=== PATIENT | male | born 1960 | race Caucasian/White ===

== ENCOUNTER 2022-10-13 07:03 | Day surgery (SDC) | payer BC, SELFPAY ==
[2022-10-13 07:15] VITALS: BP 149/82; PULSE 73; RESP 18; TEMP 37.1; O2SAT 9
[2022-10-13] MEDS: Lactated Ringers 1,000 ML 80 ML IV (07:42)
--- NOTE | 2022-10-13 08:25 | W.ANESPRE ---
General Info Date of Service Date Performed: 10/13/22 Height: 6 ft 2 in Weight: 118.7 kg Body Mass Index (BMI): 33.5 Surgical Procedure: Operation Date: 10/13/22 08:35 Proposed Procedure Side Surgeon p Colonoscopy Juan Alberto Mann MD Meds Allergies and Home Medications Allergies Allergy/AdvReac Type Severity Reaction Status Date / Time azithromycin Allergy Unknown Verified 10/13/22 07:31 Home Medication Medication Instructions Recorded fluvoxamine 25 mg tablet 25 mg PO QHS 06/07/22 multivitamin 1 tab PO DAILY 06/07/22 bisacodyl 5 mg tablet,delayed 5 mg PO ONCE #4 tabs 09/21/22 release (Dulcolax (bisacodyl)) gabapentin 100 mg capsule 100 mg PO BID 09/21/22 polyethylene glycol 3350 17 17 g PO ONCE #238 grams 09/21/22 gram/dose oral powder omega-3 fatty acids 1 cap PO DAILY 10/11/22 Current Visit Medications: Current Medications Generic Name Dose Route Start Last Admin Trade Name Floydq PRN Reason Stop Dose Admin Ringer's Solution 1,000 mls @ 80 mls/hr 10/13/22 06:00 10/13/22 07:42 IV 11/11/22 23:59 80 mls/hr INFUSION FLORECITA Administration IV Miscellaneous Supplies 1 each 10/13/22 06:00 Iv Access IV 11/11/22 23:59 DIRECTED FLORECITA Sodium Chloride 0 ml 10/13/22 06:00 Normal Saline Flush 10 Ml Syr IV 11/11/22 23:59 PRN PRN Sodium Chloride 0 ml 10/13/22 06:00 Normal Saline 10 Ml Vial IJ 11/11/22 23:59 DIRECTED PRN Sterile Water 0 ml 10/13/22 06:00 Water,Injection,Sterile 10 Ml Vial IJ 11/11/22 23:59 DIRECTED PRN PFSH Active Problems Active Problems: Problem Status Onset Code Hepatitis B B19.10 Hyperlipidemia E78.5 Lumbar radiculopathy M54.16 Serrated adenoma of colon D12.6 Osteoarthritis M19.90 Allergic rhinitis J30.9 Medical History Medical History Insomnia Surgical History Surgical History (Updated 10/13/22 @ 07:31 by Esperanza Jerome) History of colonoscopy Tobacco Smoking/Tobacco Use Status: Former Tobacco Use Alcohol Alcohol Intake: current Alcohol intake frequency: 3 or more drinks per day Alcohol type: beer Substance Use Substance use: Never Substance use type: does not use Vital Signs and Lab Results Vital Signs Most Recent Vital Signs in EMR: Most Recent Vital Signs Temp Pulse Resp BP Pulse Ox 37.1 C 73 18 149/82 H 9 L 10/13/22 07:15 10/13/22 07:15 10/13/22 07:15 10/13/22 07:15 10/13/22 07:15 Lab Results Blood Type / Crossmatch: No Data to Display Complete Blood Count: No Data to Display Complete Metabolic Panel: No Data to Display Liver Function Panel: No Data to Display Coagulation Panel: No Data to Display Cardiac Panel: No Data to Display Arterial Blood Gas: No Data to Display Venous Blood Gas: No Data to Display Pancreas Panel: No Data to Display Thyroid Panel: No Data to Display Infectious Disease: No Data to Display Blood Cultures: No Data to Display Toxicology Panel: No Data to Display Anesthesia Assessment and Plan Anesthesia History Personal History: No History of Anesthesia Complications Family History: No Family History of Anesthesia Complications Exercise Tolerance Exercise Tolerance: Metabolic Equivalents>4 Pertinent Negatives Pertinent Negatives: No Symptoms of GERD, No Major Cardiovascular Symptoms or Complaints and No Major Pulmonary Symptoms or Complaints Cardiac & Pulmonary Exam Cardiac Exam: Normal S1/S2 Heart Sounds Pulmonary Exam: Clear Bilateral Breath Sounds Implantable Cardiac Device Does patient have a Pacemaker or an ICD?: No Airway Exam Known Difficult Airway: No Mallampati Class: 2 Mouth Opening: Normal (> 3cm) Thyromental Distance: Less than 3 cm Neck Range of Motion: Full ROM Neck Circumference: Normal Teeth Condition: Normal Dentition ASA Classification ASA Score: ASA 2 Emergency Case?: No NPO Status NPO Status: NPO Clears >2 hours, Solids >8 hours Anesthesia Plan Resuscitation Status: Full Code Anesthesia Technique: General Anesthesia Airway Planned: Natural Airway Monitors Used: Standard Monitors
[2022-10-13 08:27] VITALS: BMI 33.5
--- NOTE | 2022-10-13 08:50 | W.COLOREPORT ---
Date of service: 10/13/22 Time of Service: 09:46 Colonoscopy Report Date of procedure: 10/13/22 Pre-op diagnosis general: History of sessile serrated adenoma Post-op diagnosis procedure note: other (normal colon) Procedure: 1. Colonoscopy Surgeon: Juan Alberto Mann Anesthesia Type: General:No Airway Estimated blood loss (mL): 0 Pathology: none sent Complications: None Disposition: same day Indications: Surveillance for history of sessile serrated adenoma Prep: Miralax/Dulcolax Retraction Time: >15 min Findings: Normal colon. No diverticulosis. No polyps. Procedure Description: After informed consent was obtained, the patient was taken to the procedure room and placed in a left decubitus position. Monitors were applied and a time out was done. The patient's name, date of , procedure, allergies to medications, and metal in their body were reviewed. The patient was then sedated. Once sedated and comfortable, a digital rectal exam was done. External exam was normal. Internal exam revealed normal sphincter tone, and no palpable masses or gross blood. The colonoscope was then introduced and advanced to the cecum under direct visualization with mild difficulty. The ileocecal valve and appendiceal orifice were visualized. The prep was good.? ?The scope was then slowly withdrawn over 15 minutes in a circumferential manner to the rectum. In doing so, no polyps were encountered.? There? was no diverticulosis noted. The mucosa is pink and healthy.? In the rectum, the scope was retroflexed, and no internal hemorrhoids were noted.? The scope was straightened and withdrawn from the anus. The patient tolerated the procedure well, and there were no immediate complications.? The patient was taken to the Day Surgery Unit recovery?area in good condition. Follow up: __5-7 years
[2022-10-13 09:45] VITALS: BP 119/65; PULSE 71; RESP 16; TEMP 36.6; O2SAT 98
--- NOTE | 2022-10-13 09:53 | W.ANESPOSTOP ---
Postoperative Evaluation Date, Time and Location Date Performed: 10/13/22 Time Performed: 09:54 Patient Location: Day Surgery Unit Vital Signs Most Recent Imported Vital Signs: Most Recent Vital Signs Temp Pulse Resp BP Pulse Ox 36.6 C 71 16 119/65 98 10/13/22 09:45 10/13/22 09:45 10/13/22 09:45 10/13/22 09:45 10/13/22 09:45 Pain Score Most Recent Pain Score: Most Recent Pain Score Pain Level 0 10/13/22 09:45 Assessment Mental Status: Awake (Alert & Oriented to Patient Baseline) Airway and Respiratory Function: Patent airway with normal (patient baseline) respiratory exam Cardiovascular Function: Hemodynamically Stable Hydration Status: Adequately Hydrated Nausea & Vomiting: No Nausea or Vomiting Pain: Pt. Denies Any Pain Peripheral Nerve Block: Patient did not receive a nerve block
--- NOTE | 2022-10-13 09:58 | W.PM.DSUDISC ---
Date of service: 10/13/22 Time of Service: 09:59 Discharge Plan Disposition Patient Disposition: Home Condition: Stable Discharge Details Reason For Visit: Surveillance colonoscopy Attending Provider: Juan Alberto Mann Primary Care Provider: Madisyn Mortensen Home Meds and New Rx's Prescriptions: No Action bisacodyl [Dulcolax (bisacodyl)] 5 mg tablet,delayed release (DR/EC) 5 mg PO ONCE Qty: 4 0RF Rx Instructions: Take according to provider's instructions for colonoscopy prep. polyethylene glycol 3350 17 gram/dose powder 17 g PO ONCE Qty: 238 0RF Rx Instructions: To be taken as directed by prescriber's office for colonoscopy prep. fluvoxamine 25 mg tablet 25 mg PO QHS multivitamin Tablet 1 tab PO DAILY gabapentin 100 mg capsule 100 mg PO BID Fish Oil Capsule 1 cap PO DAILY Discharge Instructions Instructions: Colonoscopy (DC) Activity:: Activity as Tolerated Diet:: As Tolerated DS: Diagnosis Discharge Diagnosis (1) History of colonoscopy: Asessment and Plan: 62yo male with normal colonoscopy on 10/13/2022. Recommend repeat in 5-7 years for history of sessile serrated adenoma.
[2022-10-13 10:13] VITALS: BP 137/89; PULSE 63; RESP 16; TEMP 36.5; O2SAT 99
== END 2022-10-13 11:00 | disposition home or self-care (01) ==
PROVIDERS: PCP Internal Medicine; Visit Provider Surgery
PROC: 0DJD8ZZ Inspection of Lower Intestinal Tract, Via Natural or Artificial Opening Endoscopic (ICD-10-PCS; CPT 45378; principal; 2022-10-13 08:30)
DX: Z09 Encounter for follow-up examination after completed treatment for conditions other than malignant neoplasm (principal); Z86.010 Personal history of colon polyps
CPT/HCPCS: 45378; J2704